=== PATIENT | male | born 1945 | race Caucasian/White ===

== ENCOUNTER → 2022-06-24 14:17 | Outpatient (CLI) | payer MEDICARE, SELFPAY ==
--- NOTE | 2022-06-24 10:45 | DI.RAD_ITS ---
Exam(s) XR ABDOMEN FLAT UPRIGHT EXAM: 2D digital imaging was performed. CLINICAL HISTORY: LOW ABD PAIN, R10.39,KNOWN METASTATIC PROSTATE CA,? CONSTIPATION. COMPARISON: No exams were available for comparison TECHNIQUE: Supine and upright views of the abdomen was performed. Four images were obtained. FINDINGS: LUNG BASES: Clear. BOWEL GAS PATTERN: Nondistended. There is large amount of stool seen in the right colon and rectum. FREE AIR: None. CALCIFICATIONS: No radiopaque calcifications. OSSEOUS STRUCTURES: There are sclerotic metastases throughout the spine, pelvis, hips and ribs. OTHER FINDINGS: None. IMPRESSION: 1. Large amount of stool seen predominantly in the right colon and rectum. 2. Diffuse sclerotic metastatic disease. DATA REPOSITORY: RADIATION DOSE DELIVERED:
== END ==
PROVIDERS: PCP Internal Medicine; Visit Provider Radiology Radiation Oncology
DX: K59.00 Constipation, unspecified (principal)
CPT/HCPCS: 74019